=== PATIENT | male | born 1990 | race Caucasian/White ===

== ENCOUNTER 2019-03-04 18:26 | Emergency (ER) | payer OTHER ==
[~2019-03-04 18:26] MED LIST: Iopamidol 370 76% 100 ML VIAL ONE
[2019-03-04 20:06] LABS: #Basophils 0.1 thou/uL (0.0-0.2); #Eosinphils 0.5 thou/uL (0.0-0.7); #Lymphocytes 3.1 thou/uL (1.20-3.40); #Monocytes 0.6 thou/uL (0.11-0.59); #Neutrophils 4.6 thou/uL (1.40-6.50); %Basophils 1.5 % (0.0-1.0); %Eosinophils 5.8 % (0.0-10.0); %Lymphocytes 35.1 % (21.0-51.0); %Monocytes 6.5 % (0.0-10.0); %Neutrophils 51.2 % (42.0-75.0); Hemoglobin 14.5 g/dL (14.0-18.0); Mean Corpuscular HGB CONC 31.5 g/dL (32.0-36.0); Mean Corpuscular Hemoglobin 26.9 pg (27.0-31.0); Mean Corpuscular Volume 85.3 fL (78.0-98.0); Mean Platelet Volume 7.3 fL (7.4-10.4); Platelet Count 312 thou/uL (130-400); RBC Distribution Width 12.6 % (11.5-14.5); White Blood Cell (WBC) Count 8.9 thou/uL (4.8-10.8)
[2019-03-04 20:28] LABS: ALT (SGPT) 44 U/L (8-55); AST (SGOT) 26 U/L (5-34); Albumin 4.7 g/dL (3.5-5.0); Alkaline Phosphatase 73 U/L (40-110); Anion Gap 15 mmol/L (10-20); BUN (Urea Nitrogen) 16 mg/dL (8.9-20.6); Bilirubin, Total 0.3 mg/dL (0.2-1.2); Calc. Creatinine Clearance 0 mL/min (70-130); Calcium 9.9 mg/dL (7.8-10.44); Carbon Dioxide 26 mmol/L (22-29); Chloride 106 mmol/L (98-107); Estimated GFR-MDRD 80; Glucose 89 mg/dL (70-105); Lipase 21 U/L (8-78); Potassium 3.5 mmol/L (3.5-5.1); Protein, Total 7.7 g/dL (6.0-8.3); Sodium 143 mmol/L (136-145)
--- NOTE | 2019-03-04 22:29 | CT ---
CT ABDOMEN AND PELVIS WITH IV CONTRAST: 03/04/19 HISTORY: Right lower quadrant abdominal pain. COMPARISON: 06/04/14. FINDINGS: Minimal dependent atelectasis is present at each lung base. The liver does demonstrate mild diminished attenuation relative to the spleen which may be related to mild fatty infiltration. Mild increased density is seen adjacent to the gallbladder which may be rel ated to a small focal area of fatty sparring. The spleen, pancreas, bilateral adrenal glands, kidneys, abdominal aorta, and urinary bladder demonst rate a normal CT appearance. Loops of small bowel are normal in caliber. The appendix is visualized and normal in caliber. No free fluid, fluid collection, or lymphadenopathy is seen in the abdomen or pelvis. There has been no significant interval change when compared to the prior exam in 2014. IMPRESSION: 1. No acute findings are seen in the abdomen or pelvis. 2. Suggestion of mild fatty infiltration of the liver with probable small focal area of fatty sp arring adjacent to the gallbladder. 3. No CT evidence of appendicitis. POS: [id number]
== END 2019-03-04 22:39 | disposition home or self-care (01) ==
LOC: MADERS 18:26
DX: R10.31 Right lower quadrant pain (principal); R10.816 Epigastric abdominal tenderness
CPT/HCPCS: 74177; 80053; 83690; 85025; Q9967